=== PATIENT | female | born 1935 | race American Indian/Alaskan Native ===

== ENCOUNTER 2017-09-22 18:45 | Emergency (ER) | payer MEDICARE ==
[2017-09-22 21:14] LABS: Basophils % (Auto) 0.4 % (0.0-1.8); Eosinophils % (Auto) 0.2 % (0.0-4.3); Hemoglobin 13.8 gm/dl (10.1-14.3); Lymphocytes # (Auto) 0.4 K/mm3 (1.2-5.4); Lymphocytes % (Auto) 9.4 % (13.4-35.0); Mean Corpuscular HGB Conc 32 % (30-34); Mean Corpuscular Hemoglobin 27 pg (28-32); Mean Corpuscular Volume 85 fl (79-97); Monocytes # (Auto) 0.3 K/mm3 (0.0-0.8); Monocytes % (Auto) 8.1 % (0.0-7.3); Platelet Count 183 K/mm3 (140-440); Red Blood Count 5.07 M/mm3 (3.65-5.03); Red Cell Distribution Width 14.5 % (13.2-15.2)
[2017-09-22 21:24] LABS: Calcium 9.9 mg/dL (8.4-10.2)
[2017-09-23] MEDS ORDERED: ZOFRAN IV ONE (01:13)
--- NOTE | 2017-09-23 01:17 | Emergency Department Report ---
ED General Adult HPI - General Chief complaint: Nausea/Vomiting/Diarrhea Stated complaint: N&V Time Seen by Provider: 09/23/17 01:02 Source: patient Mode of arrival: Wheelchair Limitations: No Limitations - History of Present Illness Initial comments: Patient is a 82 years old female with past medical history of hypertension. Patient presented to the ER complaining of an episode of loss of consciousness and jerking movements, seizure-like activity. Patient daughter stated that she passed out for at least 2 minutes. Patient had a similar episode 3 days ago and she was seen at [facility] in [place]. Patient had full workup done over there included a CT brain, CT chest and CT abdomen and pelvis which UNREMARKABLE. SHE WAS DIAGNOSED A UTI AND SENT HOME. PATIENT DENIED ANY FEVER, NECK PAIN OR NECK STIFFNESS. Severity scale (0 -10): 0 - Related Data Allergies Allergy/AdvReac Type Severity Reaction Status Date / Time No Known Allergies Allergy Verified 09/23/17 04:22 ED Review of Systems ROS: Stated complaint: N&V Other details as noted in HPI Comment: All other systems reviewed and negative Constitutional: denies: chills, fever Respiratory: cough. denies: shortness of breath, SOB with exertion, SOB at rest , wheezing Cardiovascular: denies: chest pain, palpitations, dyspnea on exertion Gastrointestinal: nausea. denies: abdominal pain, vomiting, diarrhea, constipation, hematemesis, melena, hematochezia Neurological: denies: headache, weakness, numbness, paresthesias, confusion ED Past Medical Hx - Past Medical History Hx Hypertension: Yes Additional medical history: elevated cholesterol - Social History Smoking Status: Never Smoker Substance Use Type: None ED Physical Exam - General Limitations: No Limitations General appearance: alert, in no apparent distress - Head Head exam: Present: atraumatic, normocephalic, normal inspection - Eye Eye exam: Present: normal appearance, PERRL - ENT ENT exam: Present: normal exam, normal orophraynx, mucous membranes moist, TM's normal bilaterally, normal external ear exam - Neck Neck exam: Present: normal inspection - Respiratory Respiratory exam: Present: normal lung sounds bilaterally. Absent: respiratory distress, wheezes, rales, rhonchi, chest wall tenderness, accessory muscle use, decreased breath sounds, prolonged expiratory - Cardiovascular Cardiovascular Exam: Present: regular rate, normal rhythm, normal heart sounds - GI/Abdominal GI/Abdominal exam: Present: soft, normal bowel sounds. Absent: distended, tenderness, guarding, rebound, rigid, organomegaly, mass, bruit, pulsatile mass , hernia - Extremities Exam Extremities exam: Present: normal inspection, full ROM, normal capillary refill - Back Exam Back exam: Present: normal inspection, full ROM. Absent: tenderness, CVA tenderness (R), CVA tenderness (L) - Neurological Exam Neurological exam: Present: alert, oriented X3, CN II-XII intact, normal gait - Skin Skin exam: Present: warm, intact, normal color ED Course Vital Signs 09/22/17 09/23/17 20:08 00:51 Temperature 99.2 F Pulse Rate 76 92 H Respiratory 18 16 Rate Blood Pressure 144/66 Blood Pressure 148/70 [Left] O2 Sat by Pulse 99 97 Oximetry - Reevaluation(s) Reevaluation #1: 09/23/17 05:14 I interviewed the patient recalled from [facility]. CT brain, CT neck, CT chest oral came back unremarkable. I believe this patient's symptoms is most likely consistent with seizure. Will start patient on Keppra and I advised the patient to follow up with her primary care physician for referral to neurology for further management of her seizure. ED Medical Decision Making - Lab Data Result diagrams: 09/22/17 21:01 09/22/17 21:01 Critical care attestation.: If time is entered above; I have spent that time in minutes in the direct care of this critically ill patient, excluding procedure time. ED Disposition Clinical Impression: Pneumonia, Seizure Disposition: - TO HOME OR SELFCARE Is pt being admited?: No Condition: Stable Instructions: Bacterial Pneumonia (ED), New-Onset Seizure in Adults (ED)
--- NOTE | 2017-09-23 01:48 | XRay Report ---
FINAL REPORT EXAM: XR CHEST 1V AP HISTORY: Cough. TECHNIQUE: A single frontal portable radiograph of the chest was obtained. No prior studies are available for comparison. FINDINGS: The heart is normal in size, and the aorta is tortuous and calcified. There is mild pulmonary vascular congestion. Mild patchy opacities are seen at the right medial lung base, representing atelectasis and/or infiltrate. There is no pleural effusion or pneumothorax. There are moderate spondylotic changes seen in the spine. There are also degenerative changes seen at the right acromioclavicular joint and right shoulder. IMPRESSION: Mild pulmonary vascular congestion. Mild patchy opacities at the right medial lung base, representing atelectasis and/or infiltrate.
[2017-09-23] MEDS ORDERED: LEVAQUIN 500MG/100ML 500 MG/100 ML BAG IV ONE (03:54)
[2017-09-23] MEDS ORDERED: ZOFRAN ONE (04:12)
[2017-09-23] MEDS ORDERED: KEPPRA 1,000 MG/NS 0.75% 100ML 1,000 MG/100 ML BAG IV ONE (05:13)
[2017-09-23 06:18] VITALS: BP 131/74
== END 2017-09-23 06:26 | disposition home or self-care (01) ==
LOC: ED 18:45
DX: J18.9 Pneumonia, unspecified organism (principal); R56.9 Unspecified convulsions; I10 Essential (primary) hypertension
CPT/HCPCS: 36415; 71045; 80053; 83690; 85025; 87040; 96365; 96366; 96375; 99284; J1953; J1956; J2405